=== PATIENT | female | born 2000 | race Caucasian/White ===

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

== ENCOUNTER 2021-04-14 17:56 | Emergency (ER) | payer MEDICAID ==
--- NOTE | 2021-04-14 18:46 | EDM.PDOC ---
ED HPI GENERAL MEDICAL PROBLEM - General Stated Complaint: OBJECT IN HAND Time Seen by Provider: 04/14/21 18:45 Source of Information: Reports: Patient History Limitations: Reports: No Limitations - History of Present Illness INITIAL COMMENTS - FREE TEXT/NARRATIVE: 20-year-old female who reports she was walking with her friend and approximate 5 PM today and she tripped and fell catching herself on the ground and apparently there was some stick or piece of wood on the ground that she had with the palm of her right hand. Did get a splintered embedded in the palm of her right hand at the base of the finger. She reports that this is sharp and stinging. She rates pain as a 5/10. The mother initially tried to remove the foreign body but she was concerned that she would not be able to get it all and came to the emergency department for evaluation. No other injuries. She does have full range of motion with the right hand despite the pain. It is visible within the puncture wound. There are no other associated signs or symptoms. There are no other modifying factors. Onset: Today (5 PM) Duration: Constant Location: Reports: Upper Extremity, Right (Palm of right hand.) Quality: Reports: Sharp (And stinging) Severity: Moderate Improves with: Reports: Rest Worsens with: Reports: Other (Palpation), Movement Context: Reports: Trauma Associated Symptoms: Reports: No Other Symptoms Treatments [employer] T[employer]ER: Reports: Other (see below) (Nothing.) Right Hand Pain Score (Numeric/FACES): 2 - Related Data Allergies Allergy/AdvReac Type Severity Reaction Status Date / Time latex Allergy Rash Verified 10/23/17 18:25 Home Meds: Home Meds FLUoxetine HCl [Fluoxetine HCl] 20 mg PO DAILY 04/14/21 [History] Past Medical History HEENT History: Reports: Impaired Vision Neurological History: Reports: Seizure Psychiatric History: Reports: Anxiety, Depression - Past Surgical History Other Surgical History Comment: No previous surgeries. Social & Family History - Tobacco Use Tobacco Use Status *Q: Unknown Ever Used Tobacco (Nonsmoker) - Caffeine Use Caffeine Use: Reports: Coffee, Soda, Tea - Alcohol Use Alcohol Use History: No - Living Situation & Occupation Living situation: Reports: with Family (With her mother.) Occupation: Unemployed ED ROS GENERAL - Review of Systems Review Of Systems: See Below Constitutional: Denies: Fever, Chills HEENT: Denies: Eye Pain, Hearing Loss Respiratory: Denies: Shortness of Breath, Cough Cardiovascular: Denies: Chest Pain, Lightheadedness GI/Abdominal: Denies: Nausea, Vomiting : Denies: Dysuria, Hematuria Musculoskeletal: Reports: Hand Pain. Denies: Neck Pain, Leg Pain Skin: Reports: Wound Neurological: Denies: Dizziness, Weakness Hematologic/Lymphatic: Denies: Easy Bleeding, Easy Bruising Immunologic: Reports: Other (Patient's last immunization for tetanus was 8 years ago but she decided that she does not want vaccination again and would refuse any vaccination) ED EXAM, SKIN/RASH Exam: See Below Exam Limited By: No Limitations General Appearance: Alert, WD/WN, Mild Distress Eye Exam: Bilateral Eye: EOMI, Normal Inspection Ears: Normal External Exam, Hearing Grossly Normal Nose: Normal Inspection, Normal Mucosa, No Blood Throat/Mouth: Normal Inspection, Normal Lips, Normal Oropharynx, Normal Voice, No Airway Compromise Head: Atraumatic, Normocephalic Neck: Normal Inspection, Supple, Non-Tender, Full Range of Motion Respiratory/Chest: No Respiratory Distress, Lungs Clear, Normal Breath Sounds, No Accessory Muscle Use, Chest Non-Tender Cardiovascular: Normal Peripheral Pulses, Regular Rate, Rhythm, No Murmur Peripheral Pulses: 2+: Radial (L), Radial (R) GI/Abdominal: Normal Bowel Sounds, Soft, Non-Tender Back Exam: Normal Inspection, Full Range of Motion Extremities: Normal Range of Motion, No Pedal Edema, Normal Capillary Refill, Other (Swelling with puncture wound at the palmar base of the second finger) Neurological: Alert, Oriented, CN II-XII Intact, Normal Cognition, No Motor/Sensory Deficits Psychiatric: Normal Affect Skin: Warm, Dry, Normal Color, Wound/Incision (Puncture wound with a visible at the opening on the palm of the right hand.) Location, Skin: Upper Extremity, Right (Hand) Characteristics: Other (Puncture wound) ED SKIN PROCEDURES - Foreign Body Removal Consent Obtained:: Patient Performing Doctor:: Meño Mendosa Foreign Body Other Location Comment:: Splinter in palm of right hand. Anesthesia Type: None Findings:: Subcutaneous splinter in palm of right hand just proximal to the second finger. It was visible from the opening. Complications:: No Comments:: Using splinter forceps the splinter was grasped and moved completely. I did a second pass and there was an additional debris that was removed. I did not see any additional debris. I had the patient copiously irrigated and washed her right hand and palm. The nursing staff applied a Band-Aid to the area with bacitracin. The patient tolerated this procedure well and there were no apparent complications. I discussed with the patient and with her mother the possibility of further small amount of retained foreign body they understand this and they will be watching the area for eyes of infection. They were told that if there were any signs of infection or increased pain, they should come back for reevaluation at that time. Course - Vital Signs Last Recorded V/S: Last Vital Signs Temp 37.5 C 04/14/21 17:56 Pulse 85 04/14/21 17:56 Resp 16 04/14/21 17:56 BP 112/72 04/14/21 17:56 Pulse Ox 97 04/14/21 17:56 - Orders/Labs/Meds Meds: Medications Discontinued Medications Generic Name Dose Route Start Last Admin Trade Name Freq PRN Reason Stop Dose Admin Bacitracin 1 dose 04/14/21 19:54 Bacitracin Oint 1 Gm U/D Packet TOP 04/14/21 19:55 ONETIME ONE - Re-Assessments/Exams Free Text/Narrative Re-Assessment/Exam: 04/14/21 19:45: Splinter removed from palm of right hand. Patient tolerated this well. There did not appear to be any residual splinter but I did discuss the possibility of some residual foreign material still present. The mother and the patient are aware of this and precautions and reasons for return to the emergency department were discussed with them while the patient was still in the emergency department and were detailed in the patient's discharge instructions. It has been 8 years since her last tetanus immunization but the patient used tetanus vaccination reporting that she does not want any further vaccinations. Departure - Departure Time of Disposition: 19:50 Disposition: Home, Self-Care 01 Condition: Good Clinical Impression: Splinter of right hand - Discharge Information Instructions: Hand or Foot Foreign Body, Adult, Sliver Removal, Care After Referrals: Jimena Rucker PA-C [Primary Care Provider] - Additional Instructions: You did have a splinter in the palm of your right hand. I feel that it was completely removed and we discussed this. There is always a possibility that there is a retained foreign body. You should clean the area with mild soap and water and apply bacitracin until the area scabs over. Back to the emergency department for increasing pain, redness, increased swelling, fever or any other concerning signs or symptoms. Sepsis Event Note (ED) - Focused Exam Vital Signs: Vital Signs Temp Pulse Resp BP Pulse Ox 04/14/21 17:56 37.5 C 85 16 112/72 97
[2021-04-14] MEDS ORDERED: Bacitracin Oint 1 GM U/D Packet TOP ONE (19:54)
[2021-04-15 06:56] VITALS: BP 111/67; PULSE 69
== END 2021-04-14 20:05 | disposition home or self-care (01) ==
LOC: FB.ED 17:56
DX: S60.551A Superficial foreign body of right hand, initial encounter (principal); Z91.040 Latex allergy status; W45.8XXA Other foreign body or object entering through skin, initial encounter
CPT/HCPCS: 99283

== ENCOUNTER 2022-03-11 19:41 | Emergency (ER) | payer OTHER, MEDICAID ==
[2022-03-11 19:59] VITALS: BP 120/81; PULSE 71
== END 2022-03-11 20:30 | disposition home or self-care (01) ==
LOC: FB.ED 19:41
DX: S61.215A Laceration without foreign body of left ring finger without damage to nail, initial encounter (principal); Z91.040 Latex allergy status; W26.8XXA Contact with other sharp object(s), not elsewhere classified, initial encounter; Y99.0 Civilian activity done for income or pay
CPT/HCPCS: 12001; 99000; 99282-25

== ENCOUNTER 2023-03-06 22:14 | Emergency (ER) | payer MEDICAID, OTHER ==
[2023-03-06 22:58] LABS: ESTIMATED GFR 125 mL/min (>60)
[2023-03-06 23:04] VITALS: BP 150/91; PULSE 117
[2023-03-06] MEDS ORDERED: Iopamidol 755 Mg/ML 100 ML Bottle IV ONE (23:16)
[2023-03-07] MEDS ORDERED: Heparin Sodium 5,000 Units/ML Vial IVPUSH ONE (00:45)
[2023-03-07] MEDS ORDERED: Heparin Sodium/0.45% NaCl 25,000 UNITS/500 ML BAG IV SCH (01:00)
== END 2023-03-07 03:05 ==
LOC: FB.ED 22:14
DX: G81.91 Hemiplegia, unspecified affecting right dominant side (principal); I26.99 Other pulmonary embolism without acute cor pulmonale; R79.89 Other specified abnormal findings of blood chemistry; R00.0 Tachycardia, unspecified; R06.82 Tachypnea, not elsewhere classified; G40.909 Epilepsy, unspecified, not intractable, without status epilepticus; F41.9 Anxiety disorder, unspecified; F32.A Depression, unspecified; Z91.040 Latex allergy status
CPT/HCPCS: 36415; 70450; 71275; 80053; 80307; 81025; 82947; 83605; 83735; 84484; 85025; 85379; 85610; 85730; 86140; 93005; 93010; 96365; 96366; 96376; 99285; 99285-25; J1644; Q9967